=== PATIENT | female | born 1955 | race Caucasian/White ===

== ENCOUNTER → 2019-10-17 11:44 | Outpatient (BNVA) | payer MEDICARE, BC, SELFPAY | PROVIDERS: Family Provider Nurse Practitioner Family; PCP Nurse Practitioner Family; Visit Provider Internal Medicine Rheumatology | DX: Z79.899 Other long term (current) drug therapy (principal); M06.00 Rheumatoid arthritis without rheumatoid factor, unspecified site | CPT/HCPCS: 36415; 80076; 82565; 85025; 86140 ==

== ENCOUNTER → 2019-11-11 11:55 | Outpatient (BNVA) | payer MEDICARE, BC, SELFPAY | PROVIDERS: Family Provider Nurse Practitioner Family; PCP Nurse Practitioner Family; Visit Provider Internal Medicine Rheumatology | DX: M05.9 Rheumatoid arthritis with rheumatoid factor, unspecified (principal); M19.90 Unspecified osteoarthritis, unspecified site; Z79.899 Other long term (current) drug therapy; L60.8 Other nail disorders; M85.80 Other specified disorders of bone density and structure, unspecified site; M81.0 Age-related osteoporosis without current pathological fracture; M06.9 Rheumatoid arthritis, unspecified | CPT/HCPCS: 36415; 71046; 73130; 73630; 82306; 85025; 99214 ==

== ENCOUNTER 2019-11-11 13:32 | Outpatient (CLI) | payer MEDICARE, BC, SELFPAY ==
--- NOTE | 2019-11-11 13:42 | XRR_ITS ---
PROCEDURE INFORMATION: Exam: XR Right Foot Complete Exam date and time: 11/11/2019 1:43 PM Age: 63 years old Clinical indication: Condition or disease; Other: Rheumatoid arthritis TECHNIQUE: Imaging protocol: XR Right foot. Views: 3 or more views. COMPARISON: No relevant prior studies available. FINDINGS: Bones/joints: In the negative for acute bony abnormality. Negative for bony erosions. Soft tissues: Normal. XR/XR foot RT min 3V* [id number] IMPRESSION: No acute findings.
--- NOTE | 2019-11-11 13:42 | XRR_ITS ---
PROCEDURE INFORMATION: Exam: XR Left Hand Exam date and time: 11/11/2019 1:42 PM Age: 63 years old Clinical indication: Condition or disease; Other: Rheumatoid arthritis; Additional info: Rheumatoid arthritis f/u TECHNIQUE: Imaging protocol: XR Left hand. Views: 3 or more views. COMPARISON: No relevant prior studies available. FINDINGS: Bones/joints: Negative for acute bony abnormality. Negative for bony erosions Soft tissues: Normal. XR/XR hand LT min 3V* [id number] IMPRESSION: No acute findings.
--- NOTE | 2019-11-11 13:42 | XRR_ITS ---
PROCEDURE INFORMATION: Exam: XR Right Hand Exam date and time: 11/11/2019 1:43 PM Age: 63 years old Clinical indication: Condition or disease; Other: Rheumatoid arthritis; Additional info: Rheumatoid arthritis f/u TECHNIQUE: Imaging protocol: XR Right hand. Views: 3 or more views. COMPARISON: No relevant prior studies available. FINDINGS: Bones/joints: Negative for acute bony abnormality. Negative for acute bony erosions. Soft tissues: Normal. XR/XR hand RT min 3V* [id number] IMPRESSION: No acute findings. Negative for bony erosions
--- NOTE | 2019-11-11 13:42 | XRR_ITS ---
PROCEDURE INFORMATION: Exam: XR Left Foot Complete Exam date and time: 11/11/2019 1:43 PM Age: 63 years old Clinical indication: Condition or disease; Other: Rheumatoid arthritis; Additional info: Rheumatoid arthritis f/u TECHNIQUE: Imaging protocol: XR Left foot. Views: 3 or more views. COMPARISON: No relevant prior studies available. FINDINGS: Bones/joints: Negative for acute bony abnormality. A bone spurs present on the inferior calcaneus Soft tissues: Normal. XR/XR foot LT min 3V* [id number] IMPRESSION: No acute findings.
--- NOTE | 2019-11-11 13:42 | XRR_ITS ---
PROCEDURE INFORMATION: Exam: XR Chest, 2 Views Exam date and time: 11/11/2019 1:42 PM Age: 63 years old Clinical indication: Condition or disease; Other: Rheumatoid arthritis; Prior surgery; Surgery type: Port; Additional info: Rheumatoid arthritis check/follow up TECHNIQUE: Imaging protocol: XR of the chest Views: 2 views. COMPARISON: No relevant prior studies available. FINDINGS: Lungs: Unremarkable. No consolidation. Pleural space: Unremarkable. No pleural effusion. No pneumothorax. Heart/Mediastinum: Unremarkable. No cardiomegaly. Bones/joints: Unremarkable. A central line is in place on the left side extending into the SVC XR/XR chest 2V* 32179 IMPRESSION: No acute findings. Left central line extends to the SVC
== END 2019-11-11 13:33 | disposition home or self-care (01) ==
LOC: RAD 13:36
PROVIDERS: Family Provider Nurse Practitioner Family; PCP Nurse Practitioner Family; Visit Provider Internal Medicine Rheumatology
DX: M06.9 Rheumatoid arthritis, unspecified (principal); M19.90 Unspecified osteoarthritis, unspecified site; Z79.899 Other long term (current) drug therapy; L60.8 Other nail disorders; M85.80 Other specified disorders of bone density and structure, unspecified site; M81.0 Age-related osteoporosis without current pathological fracture
CPT/HCPCS: 71046; 73130; 73630; 82306; 85025

== ENCOUNTER → 2020-03-17 12:50 | Outpatient (BNVA) | payer MEDICARE, BC, SELFPAY | PROVIDERS: Family Provider Nurse Practitioner Family; PCP Nurse Practitioner Family; Visit Provider Internal Medicine Rheumatology | DX: L40.50 Arthropathic psoriasis, unspecified (principal); Z79.899 Other long term (current) drug therapy; M19.90 Unspecified osteoarthritis, unspecified site; M81.0 Age-related osteoporosis without current pathological fracture; M54.5 Low back pain | CPT/HCPCS: 36415; 80076; 82565; 85025; 85651; 86140; 99214 ==

== ENCOUNTER → 2020-06-16 10:29 | Outpatient (BNVA) | payer MEDICARE, BC, SELFPAY | PROVIDERS: Family Provider Nurse Practitioner Family; PCP Nurse Practitioner Family; Visit Provider Internal Medicine Rheumatology | DX: Z79.899 Other long term (current) drug therapy (principal); L40.50 Arthropathic psoriasis, unspecified | CPT/HCPCS: G0463 ==

== ENCOUNTER → 2020-07-15 09:47 | Outpatient (BNVA) | payer MEDICARE, BC, SELFPAY | PROVIDERS: Family Provider Nurse Practitioner Family; PCP Nurse Practitioner Family; Visit Provider Internal Medicine Rheumatology | DX: L40.50 Arthropathic psoriasis, unspecified (principal); L60.8 Other nail disorders; Z79.899 Other long term (current) drug therapy; I27.21 Secondary pulmonary arterial hypertension; M85.80 Other specified disorders of bone density and structure, unspecified site | CPT/HCPCS: 36415; 80076; 82565; 85025; 85651; 86140; 99214 ==

== ENCOUNTER → 2020-11-08 13:56 | Outpatient (BNVA) | payer MEDICARE, BC, SELFPAY | PROVIDERS: Family Provider Nurse Practitioner Family; PCP Nurse Practitioner Family; Visit Provider Internal Medicine Rheumatology | DX: M19.90 Unspecified osteoarthritis, unspecified site (principal); L40.50 Arthropathic psoriasis, unspecified; Z79.899 Other long term (current) drug therapy; L60.8 Other nail disorders; R76.8 Other specified abnormal immunological findings in serum; M85.80 Other specified disorders of bone density and structure, unspecified site | CPT/HCPCS: 99214 ==

== ENCOUNTER 2020-11-08 15:32 | Outpatient (CLI) | payer MEDICARE, BC, SELFPAY ==
[2020-11-08 16:04] LABS: Basophils % 0.3 %; Eosinophils # 0.2 10^3/uL (0.0-0.8); Eosinophils % 1.9 %; Hematocrit 39.4 % (37.0-47.0); Hemoglobin 12.4 g/dL (11.5-15.3); Lymphocytes # 2.4 10^3/uL (0.8-4.8); Mean Corpuscular HGB Conc 31.5 g/dL (30.0-36.0); Mean Corpuscular Volume 95.2 fL (81-99); Monocytes # 0.7 10^3/uL (0.2-0.9); Neutrophils # 8.92 10^3/uL (1.8-7.7); Nucleated Red Blood Cells % 0 %; Platelet Count 247 10^3/cmm (130-400); Red Blood Count 4.14 10^6/uL (4.1-5.3); Red Cell Distribution Width 13.2 % (12.1-15.1); White Blood Count 12.4 10^3/uL (4.0-10.0)
[2020-11-08 16:15] LABS: Alanine Aminotransferase 15 U/L (0-33); Albumin Level 3.7 g/dL (3.5-5.2); Alkaline Phosphatase 107 IU/L (35-105); Aspartate Amino Transferase 24 U/L (0-32); C Reactive Protein 21.7 mg/L (0.0-4.9); Globulin 4.2 g/dL (1.3-4.6); Glomerular Filtration Rate 72.7 mL/min (90-130); Total Bilirubin 0.4 mg/dL (0.15-1.2); Total Protein 7.9 g/dL (6.6-8.7)
== END 2020-11-08 15:33 | disposition home or self-care (01) ==
PROVIDERS: PCP Nurse Practitioner Family; Visit Provider Internal Medicine Rheumatology
DX: L40.50 Arthropathic psoriasis, unspecified (principal); Z79.899 Other long term (current) drug therapy
CPT/HCPCS: 36415; 80076; 82565; 85025; 86140

== ENCOUNTER → 2021-02-16 14:37 | Outpatient (BNVA) | payer MEDICARE, BC, SELFPAY | PROVIDERS: PCP Nurse Practitioner Family; Visit Provider Internal Medicine Rheumatology | DX: M19.90 Unspecified osteoarthritis, unspecified site (principal); L40.50 Arthropathic psoriasis, unspecified; L60.8 Other nail disorders; R21 Rash and other nonspecific skin eruption; R76.8 Other specified abnormal immunological findings in serum; M85.80 Other specified disorders of bone density and structure, unspecified site; I27.21 Secondary pulmonary arterial hypertension; G47.33 Obstructive sleep apnea (adult) (pediatric); Z71.89 Other specified counseling | CPT/HCPCS: 99214 ==

== ENCOUNTER → 2021-06-27 12:59 | Outpatient (BNVA) | payer MEDICARE, BC, SELFPAY | PROVIDERS: PCP Nurse Practitioner Family; Visit Provider Internal Medicine Rheumatology | DX: L40.50 Arthropathic psoriasis, unspecified (principal); Z79.899 Other long term (current) drug therapy; R76.8 Other specified abnormal immunological findings in serum; I27.21 Secondary pulmonary arterial hypertension; G47.33 Obstructive sleep apnea (adult) (pediatric); M85.80 Other specified disorders of bone density and structure, unspecified site; Z71.89 Other specified counseling | CPT/HCPCS: 99214 ==

== ENCOUNTER 2021-06-27 14:30 | Outpatient (CLI) | payer MEDICARE, BC, SELFPAY ==
[2021-06-27 15:18] LABS: Basophils % 0.3 %; Eosinophils # 0.1 10^3/uL (0.0-0.8); Hematocrit 42.2 % (37.0-47.0); Hemoglobin 13.3 g/dL (11.5-15.3); Lymphocytes # 2.4 10^3/uL (0.8-4.8); Lymphocytes % 19.5 %; Mean Corpuscular HGB Conc 31.5 g/dL (30.0-36.0); Mean Corpuscular Volume 92.1 fl (81-99); Mean Platelet Volume 10.7 fL (7.4-10.4); Monocytes # 0.7 10^3/uL (0.2-0.9); Monocytes % 5.7 %; Neutrophils # 8.95 10^3/uL (1.8-7.7); Neutrophils % 72.8 %; Nucleated Red Blood Cells % 0 %; Platelet Count 265 10^3/cmm (130-400); Red Blood Count 4.58 10^6/uL (4.1-5.3); Red Cell Distribution Width 12.7 % (12.1-15.1); White Blood Count 12.3 10^3/uL (4.0-10.0)
[2021-06-27 15:48] LABS: Alanine Aminotransferase 12 U/L (0-33); Albumin Level 3.6 g/dL (3.5-5.2); Alkaline Phosphatase 83 IU/L (35-105); Aspartate Amino Transferase 22 U/L (0-32); C Reactive Protein 16.7 mg/L (0.0-4.9); Total Bilirubin 0.3 mg/dL (0.15-1.2); Total Protein 7.6 g/dL (6.6-8.7)
== END 2021-06-27 14:31 | disposition home or self-care (01) ==
PROVIDERS: PCP Nurse Practitioner Family; Visit Provider Internal Medicine Rheumatology
DX: M05.9 Rheumatoid arthritis with rheumatoid factor, unspecified (principal); Z79.899 Other long term (current) drug therapy
CPT/HCPCS: 36415; 80076; 82565; 85025; 86140

== ENCOUNTER → 2021-10-17 13:43 | Outpatient (BNVA) | payer MEDICARE, BC, SELFPAY | PROVIDERS: PCP Nurse Practitioner Family; Visit Provider Internal Medicine Rheumatology | DX: R76.8 Other specified abnormal immunological findings in serum (principal); L40.50 Arthropathic psoriasis, unspecified; Z79.899 Other long term (current) drug therapy; M85.80 Other specified disorders of bone density and structure, unspecified site; Z71.89 Other specified counseling | CPT/HCPCS: 85025; 99214 ==

== ENCOUNTER → 2022-03-01 10:02 | Outpatient (BNVA) | payer MEDICARE, BC, SELFPAY | PROVIDERS: PCP Nurse Practitioner Family; Visit Provider Internal Medicine Rheumatology | DX: L40.50 Arthropathic psoriasis, unspecified (principal); R76.8 Other specified abnormal immunological findings in serum; Z79.899 Other long term (current) drug therapy; Z71.89 Other specified counseling; I27.20 Pulmonary hypertension, unspecified; G47.33 Obstructive sleep apnea (adult) (pediatric); M85.80 Other specified disorders of bone density and structure, unspecified site | CPT/HCPCS: 99214 ==

== ENCOUNTER 2022-05-03 11:19 | Outpatient (CLI) | payer MEDICARE, BC, SELFPAY ==
[2022-05-03 12:07] LABS: Basophils # 0.1 10^3/uL (0.0-0.1); Basophils % 0.5 %; Eosinophils # 0.4 10^3/uL (0.0-0.8); Eosinophils % 3.4 %; Hematocrit 42.5 % (37.0-47.0); Hemoglobin 13.3 g/dL (11.5-15.3); Lymphocytes # 2.4 10^3/uL (0.8-4.8); Lymphocytes % 21.9 %; Mean Corpuscular HGB Conc 31.3 g/dL (30.0-36.0); Mean Corpuscular Hemoglobin 28.5 pg (28.0-34.0); Mean Platelet Volume 10.1 fL (7.4-10.4); Monocytes # 0.7 10^3/uL (0.2-0.9); Monocytes % 6.9 %; Neutrophils # 7.22 10^3/uL (1.8-7.7); Neutrophils % 66.8 %; Nucleated Red Blood Cells % 0 %; Platelet Count 294 10^3/cmm (130-400); Red Blood Count 4.67 10^6/uL (4.1-5.3); Red Cell Distribution Width 12.4 % (12.1-15.1); White Blood Count 10.8 10^3/uL (4.0-10.0)
[2022-05-03 12:24] LABS: Alanine Aminotransferase 16 U/L (0-33); Albumin Level 3.7 g/dL (3.5-5.2); Alkaline Phosphatase 115 U/L (35-105); Aspartate Amino Transferase 18 U/L (0-32); C Reactive Protein 22.9 mg/L (0.0-4.9); Globulin 4.3 g/dL (1.3-4.6); Glomerular Filtration Rate 72.2 mL/min (90-130); Total Bilirubin 0.2 mg/dL (0.15-1.2)
== END 2022-05-03 11:20 | disposition home or self-care (01) ==
LOC: LAB 11:24
PROVIDERS: PCP Nurse Practitioner Family; Visit Provider Internal Medicine Rheumatology
DX: M05.9 Rheumatoid arthritis with rheumatoid factor, unspecified (principal); Z79.899 Other long term (current) drug therapy
CPT/HCPCS: 36415; 80076; 82565; 85025; 86140

== ENCOUNTER → 2022-07-05 10:15 | Outpatient (BNVA) | payer MEDICARE, BC, SELFPAY | PROVIDERS: PCP Nurse Practitioner Family; Visit Provider Internal Medicine Rheumatology | DX: L40.50 Arthropathic psoriasis, unspecified (principal); Z79.899 Other long term (current) drug therapy; R76.8 Other specified abnormal immunological findings in serum; Z71.89 Other specified counseling | CPT/HCPCS: 36415; 80076; 82565; 85025; 86140; 99214 ==

== ENCOUNTER → 2022-10-02 10:00 | Outpatient (BNVA) | payer MEDICARE, BC, SELFPAY | PROVIDERS: PCP Nurse Practitioner Family; Visit Provider Internal Medicine Rheumatology | DX: L40.50 Arthropathic psoriasis, unspecified (principal); Z79.899 Other long term (current) drug therapy; R76.8 Other specified abnormal immunological findings in serum; Z71.89 Other specified counseling | CPT/HCPCS: 36415; 80076; 82565; 85025; 86140; 99214 ==

== ENCOUNTER → 2023-01-08 10:13 | Outpatient (BNVA) | payer MEDICARE, SELFPAY | PROVIDERS: PCP Nurse Practitioner Family; Visit Provider Internal Medicine Rheumatology | DX: R76.8 Other specified abnormal immunological findings in serum (principal); L40.50 Arthropathic psoriasis, unspecified; Z71.89 Other specified counseling; Z79.899 Other long term (current) drug therapy | CPT/HCPCS: 36415; 80076; 82565; 85025; 86140; 99214 ==

== ENCOUNTER → 2023-04-09 09:17 | Outpatient (BNVA) | payer MEDICARE, SELFPAY | PROVIDERS: PCP Nurse Practitioner Family; Visit Provider Internal Medicine Rheumatology | DX: Z79.899 Other long term (current) drug therapy (principal); L40.50 Arthropathic psoriasis, unspecified; R76.8 Other specified abnormal immunological findings in serum; Z71.89 Other specified counseling | CPT/HCPCS: 36415; 80076; 82565; 85025; 86140; 99214 ==

== ENCOUNTER → 2023-07-30 08:59 | Outpatient (BNVA) | payer MEDICARE, SELFPAY | PROVIDERS: PCP Nurse Practitioner Family; Visit Provider Internal Medicine Rheumatology | DX: L40.50 Arthropathic psoriasis, unspecified (principal); Z79.899 Other long term (current) drug therapy; R76.8 Other specified abnormal immunological findings in serum; Z71.89 Other specified counseling | CPT/HCPCS: 99214 ==

== ENCOUNTER → 2023-11-19 14:51 | Outpatient (BNVA) | payer MEDICARE, SELFPAY | PROVIDERS: PCP Nurse Practitioner Family; Visit Provider Internal Medicine Rheumatology | DX: Z79.899 Other long term (current) drug therapy (principal); L40.50 Arthropathic psoriasis, unspecified | CPT/HCPCS: 36415; 80076; 82565; 85025; 86140 ==

== ENCOUNTER 2024-02-08 08:00 | Oncology outpatient (recurring) (ONCR) | payer MEDICARE, SELFPAY ==
--- OUTSIDE RECORDS SUMMARY | 2024-01-02 15:49 | XMS_ITS | Patient Health Record ---
Author Name Unknown Organization [facility] Address [address] [place] [address] Care Team Providers Care [employer] Name Role Phone Barr Polly LANGE Primary Care Provider Frank Posada Unavailable [phone] Allergies Allergen (clinical drug ingredient) Drug/Non Drug Allergy documented on EMR Reaction Allergy Type Onset Date Status penicillin G Penicillin G Potassium Unknown Drug Allergy Active Sulfur Unknown Drug Allergy Active Substance with penicillin structure and antibacterial mechanism of action (substance) penicillins Unknown Drug Allergy Active Substance with sulfonamide structure and antibacterial mechanism of action (substance) sulfa drugs Unknown Drug Allergy Active Reason For Referral No Information Medications Medication SIG (Take, Route, Frequency, Duration) Notes Start Date End Date Status Diclofenac Sodium 3 % 1 application Externally Twice a day Not-Taking Dilaudid IN PAIN PUMP Not-Aneesh ing Gemfibrozil 600 MG 1 tablet 30 minutes before morning and evening meals Orally Twice a day Active Furosemide 40 MG 1 tablet Orally Once a day Not-Taking Collagen Ultra - as directed Orally Active Leflunomide 20 MG 1 tablet Orally Once a day Not-Taking Eszopiclone 2 MG 1 tablet immediately before bedtime Orally Once a day Not-Taking Linzess 145 MCG 1 capsule at least 30 minutes before the first meal of the day on an empty stomach Orally Once a day Not-Taking Gabapentin 600 MG 1 tablet Orally TID Unverified Not-Taking Morphine Sulfate-NaCl (PF) internal pain pump Not-Taking Nebivolol HCl 20 MG 1 tablet Orally Once a day Not-Taking Phentermine HCl 37.5 MG TAKE ONE TABLET BY MOUTH ONCE DAILY Oral for 30 Not-Taking OLANZapine 10 MG 1 tablet Orally Once a day Not-Taking predniSONE 5 MG 1 tablet Orally PRN Once a day Unverified Not-Taking Rinvoq Active ProAir HFA 108 (90 Base) MCG/ACT 2 puff(s) as needed Inhalation Unverified Not-Taking Bystolic 10 MG 1 tablet Orally bid Unverified Not-Taking traZODone HCl 150 MG 2 tablet at bedtime Orally Once a day for 30 day(s) Not-Taking Cosentyx 150 MG/ML 1 ml Subcutaneous Q 4 weeks Not-Taking Vitamin D3 25 MCG (1000 UT) 2 capsule Orally Once a day Not-Taking Gabapentin 600 MG Oral for 90 Days Active traZODone HCl 150 MG Oral for 90 Days Active Eszopiclone 2 MG Oral for 90 Days Active OLANZapine 10 MG Oral for 90 Days Active Immunizations Vaccine Route Administration Date Status Comme nts COVID (MOD) 12+yr 2022- Unknown 03/30/2023 Administer ed COVID-19 Vaccine (Moderna) Dose #1 Unknown 08/13/2020 A dministered COVID-19 Vaccine (Moderna) Dose #2 Unknown 09/10/2020 A dministered COVID-19 Vaccine (Moderna) Dose #3 Unknown 04/01/2021 A dministered Flu vaccine no Preserv 3 and > Unknown 05/01/2019 Admin istered Flucelvax Quadrivalent Pres Free Unknown 03/23/2016 Adm inistered Fluzone High-Dose Quadrivale nt [place] Unknown 03/30/2023 Administered Influenza (split), 2 yrs and above Unknown 04/14/2021 A dministered Influenza (whole), CPT 94440 Inactive Unknown 04/21/2014 Administered Influenza (whole), CPT 72281 Inactive Unknown 04/17/2017 Administered Influenza (whole), CPT 19346 Inactive Unknown 04/18/2018 Administered Influenza, seasonal, injecta ble, preservative free, 3 yrs and above Unknown 04/29/2019 Administered Influenza, seasonal, injecta ble, preservative free, 3 yrs and above Unknown 04/20/2020 Administered Pneumococcal conjugate PCV 13 Unknown 05/27/2015 Admini stered Pneumococcal polysaccharide PPV23 Unknown 06/18/2009 Ad ministered Shingrix Unknown 03/30/2023 Administered Social History Tobacco Use: Social History Observation Description Date Details (start date - stop date) Never Smoker NA - NA Tobacco Control (Standard) Question Answer Notes Tobacco use: Nonsmoker Problems Problem Type SNOMED Code ICD Code Onset Dates Problem Status W/U Status Risk Notes Problem 28649942 Obstructive slee p apnea (adult) (pediatric) (G47.33) Active confirmed Problem 35218376 Other sleep disorders (G47.8) Active confirmed Problem 53779609 Chronic rhinitis (J31.0) Active confirmed Problem Dependence on supplemental oxygen (281470262142) Dependence on supplemental oxygen (Z99.81) Active confirmed Problem 374871059 Dependence on other enabling machines and devices (Z99.89) Active confirmed Problem Pulmonary hypertension due to left heart disease (704160992) 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) Active confirmed Problem Pulmonary hypertension due to lung disease and/or hypoxia (559868965) Pulmonary hypertension due to lung diseases and hypoxia (I27.23) Active confirmed Problem 100011779 Other secondary pulmonary hypertension (I27.29) Active confirmed Problem Continuous positive airway pressure ventilation treatment (15123120) CPAP (continuous positive airway pressure) dependence (Z99.89) Active confirmed Problem Body mass index 40+ - severely obese (752484669) BMI 45.0-49.9, adult (Z68.42) Active confirmed Problem Body mass index 40+ - morbidly obese (839118377) BMI 40.0-44.9, adult (Z68.41) Active confirmed Problem 25955991 Pulmonary hypertension (I27.20) Active confirmed Problem Chronic hypoxemic respiratory failure (808462755) Chronic hypoxemic respiratory failure (J96.11) Active confirmed Problem Chronic hypercapnic respiratory failure (207804369) Chronic hypercapnic respiratory failure (J96.12) Active confirmed Problem Extreme obesity with alveolar hypoventilation (887982828) Obesity hypoventilation syndrome (E66.2) Active confirmed Problem Shortness of breath (633199550) Shortness of breath (R06.02) Active confirmed [facility]-103 6773- Vital Signs Heart Rate 96 /min 11/01/2023 Temperature 98 degrees Fahrenheit 11/01/2023 Respiratory Rate 18 /min 11/01/2023 Height-cm 164 cm 11/01/2023 Oximetry 93 % 11/01/2023 Blood pressure diastolic 77 mm Hg 11/01/2023 Weight-kg 122.3 kg 11/01/2023 Height 64.57 in 11/01/2023 Blood pressure systolic 127 mm Hg 11/01/2023 Weight 269.62 lbs 11/01/2023 BMI 45.46 kg/m2 11/01/2023 Encounters Encounter Location Date Provider Diagnosis [facility] [address] [place] [address] 04/23/2023 Frank Lili Pulmonary hypertensi on due to lung diseases and hypoxia I27.23 ; Chronic hypoxemic respiratory failure J96.11 ; Chronic hypercapnic respiratory failure J96.12 ; Obstructive sleep apnea (adult) (pediatric) G47.33 ; Obesity hypoventilation syndrome E66.2 ; Dependence on supplemental oxygen Z99.81 ; Dependence on other enabling machines and devices Z99.89 and BMI 45.0-49.9, adult Z68.42 [facility] [address] [place] [address] 11/01/2023 Frank Pearson Chronic hypoxemic respiratory failure J96.11 ; Pulmonary hypertension due to left heart disease I27.22 ; Chronic hypercapnic respiratory failure J96.12 ; Obstructive sleep apnea (adult) (pediatric) G47.33 ; Chronic rhinitis J31.0 ; Obesity hypoventilation syndrome E66.2 ; Dependence on supplemental oxygen Z99.81 ; Dependence on other enabling machines and devices Z99.89 and BMI 45.0-49.9, adult Z68.42 [facility] [address] [place] [address] 04/23/2023 Frank Pearson Assessments Encounter Date Diagnosis (ICD Code) Assessment Notes Treatment Notes Treatment Clinical Notes 04/23/2023 Pulmonary hypertension due to lung diseases and hypoxia (ICD-10 - I27.23) - Secondary to left heart disease as well as hypoxemia and sleep apnea. -Currently on lasix -Encourage exercise 04/23/2023 Chronic hypoxemic respiratory failure (ICD-10 - J96.11) - Patient's spo2 dropped to 84% when ambulating on room air here in clinic. She required 2 lpm to keep her spo2 at 90%. Continue oxygen use to maintain a saturation above 89% given pulmonary hypertension 11/01/2023 Pulmonary hypertension due to left heart disease (ICD-10 - I27.22) - Secondary to left heart disease as well as hypoxemia and sleep apnea. -Patient currently not on Lasix. She has not seen Dr. Andrade in years. -Encourage exercise. 11/01/2023 Chronic hypoxemic respiratory failure (ICD-10 - J96.11) Continue oxygen use to maintain a saturation above 89% given pulmonary hypertension. She is compliant with her oxygen and is benefiting from using it. 11/01/2023 Chronic hypercapnic respiratory failure (ICD-10 - J96.12) - continue use of trilogy when asleep at night. She is compliant with her NIV and is benefiting from it. 04/23/2023 Chronic hypercapnic respiratory failure (ICD-10 - J96.12) - continue use of trilogy when asleep at night. 04/23/2023 Obstructive sleep apnea (adult) (pediatric) (ICD-10 - G47.33) - obesity hypoventilation syndrome - encourage exercise 11/01/2023 Obstructive sleep apnea (adult) (pediatric) (ICD-10 - G47.33) - obesity hypoventilation syndrome - encourage exercise 11/01/2023 Chronic rhinitis (ICD-10 - J31.0) I told her she may use Flonase nasal spray 04/23/2023 Obesity hypoventilation syndrome (ICD-10 - E66.2) 04/23/2023 Dependence on supplemental oxygen (ICD-10 - Z99.81) 11/01/2023 Obesity hypoventilation syndrome (ICD-10 - E66.2) 11/01/2023 Dependence on supplemental oxygen (ICD-10 - Z99.81) 04/23/2023 Dependence on other enabling machines and devices (ICD-10 - Z99.89) 04/23/2023 BMI 45.0-49.9, adult (ICD-10 - Z68.42) 11/01/2023 Dependence on other enabling machines and devices (ICD-10 - Z99.89) 11/01/2023 BMI 45.0-49.9, adult (ICD-10 - Z68.42) 11/01/2023 Other I, Yennifer Prajapati, am scribing for, and in the presence of Dr. Frank Pearson. I, Dr. Frank Pearson, personally performed the services described in this documentation, as scribed by Yennifer Prajapati in my presence, and it is both accurate and complete. Plan Of Treatment Future Test Test Name Order Date Blood Gas Arterial--[id number] 12/26/2020 Next Appt Details Provider Name:Frank Pearson, 11/03/2024 01:40:00 PM, [address] [place] [address] [address], [place], [address], Insurance Providers Payer Name Payer Address Payer Phone Subscriber Number Group Number Insured Name Patient Relationship to Insured Coverage Start Date Coverage End Date [place] Medicare [address] [place] [phone] [id number] SHAMIKAMAKAYLA LAGUERRE Self - patient is the insured [facility] Medicare Supplement [address] [place] [address] [id number] SHAMIKAMAKAYLA Self - patient is the insured Medical (General) History Medical History History ICD Code Problem:Acute on chronic fernanda stolic heart failure (disorder) , Status :: Active Problem:Body mass index 40+ - severely o bese (finding) , Status :: Active Problem:Chronic back pain (disorder) , S tatus :: Active Problem:Chronic diastolic heart failure (disorder) , Status :: Active Problem:Chronic hypoxemic respiratory fa ilure (disorder) , Status :: Active Problem:Depressive disorder (disorder) , Status :: Active Problem:Disorder of the venkat pheral nervous system (disorder) , Status :: Active Problem:Edema (finding) , Status :: Acti ve Problem:Edema of lower extremity (findin g) , Status :: Active Problem:Hip pain (finding) , Status :: A ctive Problem:Hypertensive disorde r, systemic arterial (disorder) , Status :: Active Problem:Hypertriglyceridemia (disorder) , Status :: Active Problem:Insomnia (disorder) , Status :: Active Problem:Kidney stone (disorder) , Status :: Active Problem:Obesity (disorder) , Status :: A ctive Problem:Obstructive sleep apnea syndrome (disorder) , Status :: Active Problem:Persistent insomnia (disorder) , Status :: Active Problem:Pulmonary function studies abnor mal (finding) , Status :: Active Problem:Pulmonary venous hyp ertension due to disorder of left heart (disorder) , Status :: Active Problem:Rheumatoid arthritis (disorder) , Status :: Active Problem:Rheumatoid arthritis - multiple joint (disorder) , Status :: Active Problem:Obesity (disorder) , Status :: A ctive Surgical History Surgery Date(Month/Year) appendectomy port a cath placement total hytserectomy oophorectomy cholecystectomy pain pump placement back surgery Hospitalization History Reason Date(Month/Year) Kidney Stone- ER 10/2023 see surgical Hx
[2024-01-24] VITALS (8 sets, daily range): BP systolic 128–165; BP diastolic 72–84; PULSE 68–87; RESP 16–18; TEMP 35.9–36.8; O2SAT 93–98
--- OUTSIDE RECORDS SUMMARY | 2024-01-24 10:52 | XMS_ITS ---
Author Name Unknown Organization [facility] Address [address] [place] [address] Care Team Providers Care Die Sinking Machine Operator Name Role Phone Polly Barr APRN Primary Care Provider UnaFrank Michaels Unavailable [phone] Allergies Allergen (clinical drug ingredient) Drug/Non Drug Allergy documented on EMR Reaction Allergy Type Onset Date Status penicillin G Penicillin G Potassium Unknown Drug Allergy Active Sulfur Unknown Drug Allergy Active Substance with penicillin structure and antibacterial mechanism of action (substance) penicillins Unknown Drug Allergy Active Substance with sulfonamide structure and antibacterial mechanism of action (substance) sulfa drugs Unknown Drug Allergy Active REASON FOR VISIT shortness of breath Medications Medication SIG (Take, Route, Frequency, Duration) Notes Start Date End Date Status predniSONE 5 MG 1 tablet Orally Once a day for 30 day(s) 11/01/2023 12/01/2023 Active traZODone HCl 150 MG 2 tablet at bedtime Orally Once a day for 30 day(s) Not-Taking Vitamin D3 25 MCG (1000 UT) 2 capsule Orally Once a day Not-Taking Eszopiclone 2 MG Oral for 90 Days Active OLANZapine 10 MG Oral for 90 Days Active Morphine Sulfate-NaCl (PF) internal pain pump Not-Taking Phentermine HCl 37.5 MG TAKE ONE TABLET BY MOUTH ONCE DAILY Oral for 30 Not-Taking predniSONE 5 MG 1 tablet Orally PRN Once a day Unverified Not-Taking ProAir HFA 108 (90 Base) MCG/ACT 2 puff(s) as needed Inhalation Unverified Not-Taking traZODone HCl 150 MG Oral for 90 Days Active Dilaudid IN PAIN PUMP Not-Aneesh ing Furosemide 40 MG 1 tablet Orally Once a day Not-Taking Leflunomide 20 MG 1 tablet Orally Once a day Not-Taking Linzess 145 MCG 1 capsule at least 30 minutes before the first meal of the day on an empty stomach Orally Once a day Not-Taking Diclofenac Sodium 3 % 1 application Externally Twice a day Not-Taking Nebivolol HCl 20 MG 1 tablet Orally Once a day Not-Taking OLANZapine 10 MG 1 tablet Orally Once a day Not-Taking Rinvoq Active Bystolic 10 MG 1 tablet Orally bid Unverified Not-Taking Cosentyx 150 MG/ML 1 ml Subcutaneous Q 4 weeks Not-Taking Gemfibrozil 600 MG 1 tablet 30 minutes before morning and evening meals Orally Twice a day Active Collagen Ultra - as directed Orally Active Eszopiclone 2 MG 1 tablet immediately before bedtime Orally Once a day Not-Taking Gabapentin 600 MG 1 tablet Orally TID Unverified Not-Taking Gabapentin 600 MG Oral for 90 Days Active Social History Tobacco Use: Social History Observation Description Date Details (start date - stop date) Never Smoker NA - NA Tobacco Control (Standard) Question Answer Notes Tobacco use: Nonsmoker Problems Problem Type SNOMED Code ICD Code Onset Dates Problem Status W/U Status Risk Notes Problem 93372734 Pulmonary hypertension (I27.20) Active confirmed Problem 88536679 Chronic rhinitis (J31.0) Active confirmed Vital Signs Temperature 98 degrees Fahrenheit 11/01/2023 Blood pressure systolic 127 mm Hg 11/01/19 24 Blood pressure diastolic 77 mm Hg 024 Heart Rate 96 /min 11/01/2023 Respiratory Rate 18 /min 11/01/2023 Height 64.57 in 11/01/2023 Weight 269.62 lbs 11/01/2023 BMI 45.46 kg/m2 11/01/2023 Oximetry 93 % 11/01/2023 Height-cm 164 cm 11/01/2023 Weight-kg 122.3 kg 11/01/2023 Encounters Encounter Location Date Provider Diagnosis [facility] [address] [place] [address] [place] [address] 11/01/2023 Frank Pearson Chronic hypoxemic respiratory failure J96.11 ; 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 She is compliant with her oxygen and is benefiting from using it. 11/01/2023 Pulmonary hypertension due to left heart disease (ICD-10 - I27.22) - Secondary to left heart disease as well as hypoxemia and sleep apnea. -Patient currently not on Lasix. She has not seen Dr. Andrade in years. -Encourage exercise. 11/01/2023 Chronic hypercapnic respiratory failure (ICD-10 - J96.12) - continue use of trilogy when asleep at night. She is compliant with her NIV and is benefiting from it. 11/01/2023 Obstructive sleep apnea (adult) (pediatric) (ICD-10 - G47.33) - obesity hypoventilation syndrome - encourage exercise 11/01/2023 Chronic rhinitis (ICD-10 - J31.0) I told her she may use Flonase nasal spray 11/01/2023 Obesity hypoventilation syndrome (ICD-10 - E66.2) 11/01/2023 Dependence on supplemental oxygen (ICD-10 - Z99.81) 11/01/2023 Dependence on other enabling machines and [...] both accurate and complete. Plan Of Treatment Treatment Notes Assessment Notes Chronic hypoxemic respiratory failure Co ntinue oxygen use to maintain a saturation above 89% given pulmonary hypertension. She is compliant with her oxygen and is benefiting from using it. Pulmonary hypertension due t o left heart disease - Secondary to left heart disease as well as hypoxemia and sleep apnea. -Patient currently not on Lasix. She has not seen Dr. Andrade in years. -Encourage exercise. Chronic hypercapnic respiratory failure - continue use of trilogy when asleep at night. She is compliant with her NIV and is benefiting from it. Obstructive sleep apnea (paige lt) (pediatric) - obesity hypoventilation syndrome - encourage exercise Chronic rhinitis I told her she may u se Flonase nasal spray Next Appt Details Follow Up: 1 Year, Reason: F /U Provider Name:Frank Pearson, 11/03/2024 01:40:00 PM, [address] [place] [address] [address], [place], [address], Progress Notes * MAKAYLA GALLARDO GDOB:1955 (67 yo F)Acc No.[id number]:11/01/2023 Progress Notes Patient:?MAKAYLA GALLARDO Karen Provider:?Frank Pearson MD :1955???Age:67 Y???Sex:Female D ate:11/01/2023 Address:[address] [place], [place] [id number] Pcp:Polly Barr APRN Check In:01:21 PM CSTCheck O ut:01:59 PM ENVIRONMENTAL AID Subjective: * Chief Complaints: * ???Shortness of breath * HPI: ???::?The patient is a 67-year-old female with shortness of breath here for?a follow-up visit. She had?an episode where she complained of increased breathlessness. She does have seasonal allergies it seems. She did take prednisone and it seems to have resolved her symptoms. She is compliant with oxygen use and using the trilogy device at night. She has not seen Dr. Andrade in years. ???Polysomnogram:?Polysomnogram results showed?12/24/17: AHI 8.5, requiring CPAP pressure of 15 cm water.?Pulmonary function test:?Pulmonary function testing showed?12/21/17: FEV1/FVC 73%, FEV1 66% (1.77 L), TLC 63%, RV 42%, DLCO 63%.? * ROS:?General - Multi System:?Constitutional?fatigue.?Respiratory?shortness of breath.? * Medical History:? * Surgical History:?appendecto my port a cath placement total hytserectomy oophorectomy cholecystectomy pain pump placement back surgery * Hospitalization/Major Diagno stic Procedure:?see surgical Hx Kidney Stone- ER 10/2023 * Family History:?Father: unkn own, heart attack, diabetes.?Mother: diabetes, heart disease.? * Social History:?Tobacco Use:?Tobacco Control (Standard)?Tobacco use:?Nonsmoker ???never smoker. * Medications:?TakingRinvoq Ga bapentin 600 MG Tablet Oral traZODone HCl 150 MG Tablet Oral Eszopiclone 2 MG Tablet Oral OLANZapine 10 MG Tablet Oral predniSONE 5 MG Tablet 1 tablet Orally Once a day , stop date 12/01/2023ollagen Ultra - Capsule as directed Orally Gemfibrozil 600 MG Tablet 1 tablet 30 minutes before morning and evening meals Orally Twice a day Taking Rinvoq Taking Gabapentin 600 MG Tablet Oral Taking traZODone HCl 150 MG Tablet Oral Taking Eszopiclone 2 MG Tablet Oral Taking OLANZapine 10 MG Tablet Oral Taking predniSONE 5 MG Tablet 1 tablet Orally Once a day , stop date 12/01/2023Taking Collagen Ultra - Capsule as directed Orally Taking Gemfibrozil 600 MG Tablet 1 tablet 30 minutes before morning and evening meals Orally Twice a day Not-TakingEszopiclone 2 MG Tablet 1 tablet immediately before bedtime Orally Once a day Gabapentin 600 MG Tablet 1 tablet Orally TID , Notes to Pharmacist: UnverifiedNebivolol HCl 20 MG Tablet 1 tablet Orally Once a day OLANZapine 10 MG Tablet 1 tablet Orally Once a day Bystolic 10 MG Tablet 1 tablet Orally bid , Notes to Pharmacist: UnverifiedCosentyx 150 MG/ML Solution Prefilled Syringe 1 ml Subcutaneous Q 4 weeks Diclofenac Sodium 3 % Gel 1 application Externally Twice a day Dilaudid , Notes to Pharmacist: IN PAIN PUMPFurosemide 40 MG Tablet 1 tablet Orally Once a day Leflunomide 20 MG Tablet 1 tablet Orally Once a day Linzess 145 MCG Capsule 1 capsule at least 30 minutes before the first meal of the day on an empty stomach Orally Once a day Morphine Sulfate-NaCl (PF) , Notes to Pharmacist: internal pain pumpPhentermine HCl 37.5 MG Tablet TAKE ONE TABLET BY MOUTH ONCE DAILY Oral predniSONE 5 MG Tablet 1 tablet Orally PRN Once a day , Notes to Pharmacist: UnverifiedProAir HFA 108 (90 Base) MCG/ACT Aerosol Solution 2 puff(s) as needed Inhalation , Notes to Pharmacist: UnverifiedtraZODone HCl 150 MG Tablet 2 tablet at bedtime Orally Once a day Vitamin D3 25 MCG (1000 UT) Capsule 2 capsule Orally Once a day Not-Taking Eszopiclone 2 MG Tablet 1 tablet immediately before bedtime Orally Once a day Not-Taking Gabapentin 600 MG Tablet 1 tablet Orally TID , Notes to Pharmacist: UnverifiedNot-Taking Nebivolol HCl 20 MG Tablet 1 tablet Orally Once a day Not-Taking OLANZapine 10 MG Tablet 1 tablet Orally Once a day Not-Taking Bystolic 10 MG Tablet 1 tablet Orally bid , Notes to Pharmacist: UnverifiedNot-Taking Cosentyx 150 MG/ML Solution Prefilled Syringe 1 ml Subcutaneous Q 4 weeks Not-Taking Diclofenac Sodium 3 % Gel 1 application Externally Twice a day Not-Taking Dilaudid , Notes to Pharmacist: IN PAIN PUMPNot-Taking Furosemide 40 MG Tablet 1 tablet Orally Once a day Not-Taking Leflunomide 20 MG Tablet 1 tablet Orally Once a day Not- Taking Linzess 145 MCG Capsule 1 capsule at least 30 minutes before the first meal of the day on an empty stomach Orally Once a day Not-Taking Morphine Sulfate-NaCl (PF) , Notes to Pharmacist: internal pain pumpNot-Taking Phentermine HCl 37.5 MG Tablet TAKE ONE TABLET BY MOUTH ONCE DAILY Oral Not-Taking predniSONE 5 MG Tablet 1 tablet Orally PRN Once a day , Notes to Pharmacist: UnverifiedNot-Taking ProAir HFA 108 (90 Base) MCG/ACT Aerosol Solution 2 puff(s) as needed Inhalation , Notes to Pharmacist: UnverifiedNot-Taking traZODone HCl 150 MG Tablet 2 tablet at bedtime Orally Once a day Not-Taking Vitamin D3 25 MCG (1000 UT) Capsule 2 capsule Orally Once a day * Allergies:?penicillins: Dragan rgysulfa drugs: AllergyPenicillin G PotassiumSulfurno[Allergies Verified] Objective: * Vitals:?Ht: 64.57 in, Wt:269 .62lbs, Wt-k.3 kg, BMI:45.46Index, Temp:98F, BP:127/77mm Hg, HR:96/min, RR:18/min, Oxygen sat %:93%, O2 Source: CONS POC, FiO2 (%): 3L, Ht-cm: 164 cm. * Examination: ???General Examination: ?GENERAL APPEARANCE:?alert and oriented, no acute distress.?EYES:?extraocular movement intact (EOMI).?EARS:?normal hearing.?SKIN:?warm, moist.?HEART:?normal rate, regular rhythm, no murmur, no edema.?LUNGS:?lungs clear to auscultation, nonlabored respirations, breath sounds equal .?NEUROLOGIC:?alert, oriented.?PSYCH:?cooperative, appropriate mood and affect.? Assessment: * Assessment: 1.?Pulmonary hypertension du e to left heart disease - I27.22 (Primary)?2.?Chronic hypoxemic respiratory failure - J96.11?3.?Chronic hypercapnic respiratory failure - J96.12 4.?Obstructive sleep apnea (adult) (pediatric) - G47.33?5.?Chronic rhinitis - J31.0?6.?Obesity hypoventilation syndrome - E66.2?7.?Dependence on supplemental oxygen - Z99.81?8.?Dependence on other enabling machines and devices - Z99.89?9.?BMI 45.0-49.9, adult - Z68.42? Plan: * Treatment: 2.?Chronic hypoxemic respira tory failure? Notes: Continue oxygen use to maintain a saturation above 89% given pulmonary hypertension. She is compliant with her oxygen and is benefiting from using it. ?? 3.?Chronic hypercapnic respi ratory failure? Notes: - continue use of trilogy when asleep at night. She is compliant with her NIV and is benefiting from it.?? 4.?Obstructive sleep apnea ( adult) (pediatric)? Notes:- obesity hypoventilation syndrome - encourage exercise?? 5.?Chronic rhinitis? Notes: I told her she may use Flonase nasal spray?? 6.?Others? Clinical Notes: I, Yennifer Prajapati, am scribing for, and in the presence of Dr. Frank Pearson. I, Dr. Frank Pearson, personally performed the services described in this documentation, as scribed by Yennifer Prajapati in my presence, and it is both accurate and complete.?? * ??Immunizations:? ??Immunization record has be en reviewed and updated. * Procedure Codes:?3074F SYST BP LT 130 MM [id number] DIAST BP < 80 MM HG * Follow Up:?1 Year (Reason: F /U) * Billing Information: * Visit Code:? 66026 Office Visit, Est Pt., Level 3. * Procedure Codes:? 3074F SYST BP LT 130 MM HG. 3078F DIAST BP < 80 MM HG. Care Plan Details* * Sign off status: Completed true * Provider:?Frank Pearson MD Date:?11/01/19 24 Generated for Sara romero/Won/eTransmitting on:?01/24/2024 10:52 AM CDT History and Physical Notes * HPI (History of Present Illness) Category Sub-Category Detail Notes Pulmonary function test Pulmonary functi on testing showed 12/21/17: FEV1/FVC 73%, FEV1 66% (1.77 L), TLC 63%, RV 42%, DLCO 63% Polysomnogram Polysomnogram results showed 12/24: AHI 8.5, requiring CPAP pressure of 15 cm water Examination Category Sub-Category Detail Notes General Examination GENERAL APPEARANCE: alert an d oriented, no acute distress EYES: extraocular movement intact (EOMI) EARS: normal hearing HEART: normal rate, regular rhythm, no murmur, no edema LUNGS: lungs clear to auscu ltation, nonlabored respirations, breath sounds equal NEUROLOGIC: alert, oriented SKIN: warm, moist PSYCH: cooperative, appropr iate mood and affect
--- OUTSIDE RECORDS SUMMARY | 2024-01-24 10:53 | XMS_ITS ---
Author Name Unknown Organization [facility] Address [address] [place] [address] Care Team Providers Care Auto Transmission Mechanic Name Role Phone Polly Barr APRN Primary Care Provider Unava ilFrank Robles [phone] Encounters Encounter Location Date Provider Diagnosis [facility] [address] [place] [address] [place] [address] 07/31/2023 Frank Pearson Plan Of Treatment Next Appt Details Provider Name:Frank Pearson, 11/03/2024 01:40:00 PM, [address] [place] [address] [place], [address], Progress Notes * MAKAYLA GALLARDO GDOB:1955 (68 yo F)Acc No.[id number]:07/31/2023 Progress Notes Patient:?MAKAYLA GALLARDO Provider:?Frank Pearson MD :1955???Age:67 Y???Sex:Female D ate:07/31/2023 Address:[address] [id number] Pcp:Polly Barr APRN Subjective: * Chief Complaints: * ??? * Medical History:? Objective: * Vitals:? Assessment: Plan: * Treatment: * Billing Information: * Visit Code:? * Procedure Codes:? Care Plan Details* * Electronic signature of Nicole Pearson MD on 01/24/2024 at 10:52 AM CDT Sign off status: Pending * Provider:?Frank Pearson MD Date:?07/31/19 24 Generated for Sara romero/Won/Halina on:?01/24/2024 10:52 AM CDT
--- OUTSIDE RECORDS SUMMARY | 2024-01-24 10:53 | XMS_ITS ---
Author Name Unknown Organization [facility] Address [address] [facility] [address] [place] [address] Care Team Providers Care Pharmacy Helper Name Role Phone Polly Barr APRN Primary Care Provider UnaFrank Michaels Unavailable [phone] Allergies Allergen (clinical drug ingredient) Drug/Non Drug [...] Duration) Notes Start Date End Date Status Vitamin D3 25 MCG (1000 UT) 2 capsule Orally Once a day Not-Taking Phentermine HCl 37.5 MG TAKE ONE TABLET BY MOUTH ONCE DAILY Oral for 30 Not-Taking Cosentyx 150 MG/ML 1 ml Subcutaneous Q 4 weeks Not-Taking Morphine Sulfate-NaCl (PF) internal pain pump Not-Taking ProAir HFA 108 (90 Base) MCG/ACT 2 puff(s) as needed Inhalation Unverified Not-Taking traZODone HCl 150 MG 2 tablet at bedtime Orally Once a day for 30 day(s) Not-Taking predniSONE 5 MG 1 tablet Orally PRN Once a day Unverified Not-Taking Furosemide 40 MG 1 tablet Orally Once a day Not-Taking Linzess 145 MCG 1 capsule at least 30 minutes before the first meal of the day on an empty stomach Orally Once a day Not-Taking OLANZapine 10 MG 1 tablet Orally Once a day Active Diclofenac Sodium 3 % 1 application Externally Twice a day Not-Taking Gabapentin 600 MG 1 tablet Orally TID Unverified Active Bystolic 10 MG 1 tablet Orally bid Unverified Not-Taking Leflunomide 20 MG 1 tablet Orally Once a day Not-Taking Dilaudid IN PAIN PUMP Not-Aneesh ing Rinvoq Active Eszopiclone 2 MG 1 tablet immediately before bedtime Orally Once a day Active Nebivolol HCl 20 MG 1 tablet Orally Once a day Active Social History Tobacco Use: Social History Observation Description Date Details (start date - stop date) Never Smoker NA - NA xTobacco Use/Smoking Question Answer Notes Are you a nonsmoker Problems Problem Type SNOMED Code ICD Code Onset Dates Problem Status W/U Status Risk Notes Problem Body mass index 40+ - morbidly obese (735208926) BMI 40.0-44.9, adult (Z68.41) Active confirmed Vital Signs Temperature 98.1 degrees Fahrenheit 04/23/20 23 Blood pressure systolic 131 mm Hg 04/23/20 23 Blood pressure diastolic 77 mm Hg 023 Heart Rate 102 /min 04/23/2023 Respiratory Rate 18 /min 04/23/2023 Height 64.57 in 04/23/2023 Weight 274.91 lbs 04/23/2023 BMI 46.35 kg/m2 04/23/2023 Oximetry 89 % 04/23/2023 Height-cm 164 cm 04/23/2023 Weight-kg 124.7 kg 04/23/2023 Encounters Encounter Location Date Provider Diagnosis [facility] [address] [place] [address] [address] [place] [address] 04/23/2023 Frank Pearson Pulmonary hypertensi on due to lung diseases [...] a saturation above 89% given pulmonary hypertension 04/23/2023 Chronic hypercapnic respiratory failure (ICD-10 - J96.12) - continue use of trilogy when asleep at night. 04/23/2023 Obstructive sleep apnea (adult) (pediatric) (ICD-10 - G47.33) - obesity hypoventilation syndrome - encourage exercise 04/23/2023 Obesity hypoventilation syndrome (ICD-10 - E66.2) 04/23/2023 Dependence on supplemental oxygen (ICD-10 - Z99.81) 04/23/2023 Dependence on other enabling machines and devices (ICD-10 - Z99.89) 04/23/2023 BMI 45.0-49.9, adult (ICD-10 - Z68.42) Plan Of Treatment Treatment Notes Assessment Notes Pulmonary hypertension due t o lung diseases and hypoxia - Secondary to left heart disease as well as hypoxemia and sleep apnea. -Currently on lasix -Encourage exercise Chronic hypoxemic respiratory failure - Patient's spo2 dropped to 84% when ambulating on room air here in clinic. She required 2 lpm to keep her spo2 at 90%. Continue oxygen use to maintain a saturation above 89% given pulmonary hypertension Chronic hypercapnic respiratory failure - continue use of trilogy when asleep at night. 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 The patient is a 67-year-old female with sleep apnea who comes in for a follow-up visit. She did have significant desaturation on exertion here in the clinic. She still gets breathless with exertion and is even more prominent when she lays down at night. She continues using the trilogy device at night. ???Polysomnogram:?Polysomnogram results showed?12/24/17: AHI 8.5, requiring CPAP pressure of 15 cm water.?Pulmonary function test:?Pulmonary function testing showed?12/21/17: FEV1/FVC 73%, FEV1 66% (1.77 L), TLC 63%, RV 42%, DLCO 63%.? * ROS:?General - Multi System:?Constitutional?fatigue.?Respiratory?shortness of breath.? * Medical History:? * Surgical History:?appendecto my port a cath placement total hytserectomy oophorectomy cholecystectomy pain pump placement back surgery * Hospitalization/Major Diagno stic Procedure:?see surgical Hx * Family History:?Father: unkn own, heart attack, diabetes.?Mother: diabetes, heart disease.? * Social History:?Tobacco Use:?Tobacco Use/Smoking?Are you a?nonsmoker ???never smoker. * Medications:?TakingEszopiclo ne 2 MG Tablet 1 tablet immediately before bedtime Orally Once a dayNebivolol HCl 20 MG Tablet 1 tablet Orally Once a dayRinvoq Gabapentin 600 MG Tablet 1 tablet Orally TID, Notes: UnverifiedOLANZapine 10 MG Tablet 1 tablet Orally Once a dayTaking Eszopiclone 2 MG Tablet 1 tablet immediately before bedtime Orally Once a dayTaking Nebivolol HCl 20 MG Tablet 1 tablet Orally Once a dayTaking Rinvoq Taking Gabapentin 600 MG Tablet 1 tablet Orally TID, Notes: UnverifiedTaking OLANZapine 10 MG Tablet 1 tablet Orally Once a dayNot-TakingDiclofenac Sodium 3 % Gel 1 application Externally Twice a dayLeflunomide 20 MG Tablet 1 tablet Orally Once a dayDilaudid , Notes: IN PAIN PUMPBystolic 10 MG Tablet 1 tablet Orally bid, Notes: UnverifiedFurosemide 40 MG Tablet 1 tablet Orally Once a dayLinzess 145 MCG Capsule 1 capsule at least 30 minutes before the first meal of the day on an empty stomach Orally Once a daytraZODone HCl 150 MG Tablet 2 tablet at bedtime Orally Once a daypredniSONE 5 MG Tablet 1 tablet Orally PRN Once a day, Notes: UnverifiedVitamin D3 25 MCG (1000 UT) Capsule 2 capsule Orally Once a dayPhentermine HCl 37.5 MG Tablet TAKE ONE TABLET BY MOUTH ONCE DAILY Oral Morphine Sulfate-NaCl (PF) , Notes: internal pain pumpProAir HFA 108 (90 Base) MCG/ACT Aerosol Solution 2 puff(s) as needed Inhalation , Notes: UnverifiedCosentyx 150 MG/ML Solution Prefilled Syringe 1 ml Subcutaneous Q 4 weeksMedication List reviewed and reconciled with the patientNot-Taking Diclofenac Sodium 3 % Gel 1 application Externally Twice a dayNot-Taking Leflunomide 20 MG Tablet 1 tablet Orally Once a dayNot-Taking Dilaudid , Notes: IN PAIN PUMPNot-Taking Bystolic 10 MG Tablet 1 tablet Orally bid, Notes: UnverifiedNot-Taking Furosemide 40 MG Tablet 1 tablet Orally Once a dayNot- Taking Linzess 145 MCG Capsule 1 capsule at least 30 minutes before the first meal of the day on an empty stomach Orally Once a dayNot-Taking traZODone HCl 150 MG Tablet 2 tablet at bedtime Orally Once a dayNot-Taking predniSONE 5 MG Tablet 1 tablet Orally PRN Once a day, Notes: UnverifiedNot-Taking Vitamin D3 25 MCG (1000 UT) Capsule 2 capsule Orally Once a dayNot-Taking Phentermine HCl 37.5 MG Tablet TAKE ONE TABLET BY MOUTH ONCE DAILY Oral Not-Taking Morphine Sulfate-NaCl (PF) , Notes: internal pain pumpNot-Taking ProAir HFA 108 (90 Base) MCG/ACT Aerosol Solution 2 puff(s) as needed Inhalation , Notes: UnverifiedNot-Taking Cosentyx 150 MG/ML Solution Prefilled Syringe 1 ml Subcutaneous Q 4 weeksMedication List reviewed and reconciled with the patient * Allergies:?penicillins: Dragan rgysulfa drugs: AllergyPenicillin G PotassiumSulfurno[Allergies Verified] Objective: * Vitals:?Ht: 64.57 in, Wt:274 .91 lbs, Wt-k.7 kg, BMI:46.35 Index, Temp:98.1 F, BP:131/77 mm Hg, HR:102 /min, RR:18 /min, Oxygen sat %:89 %, Ht-cm: 164 cm. * Examination: ???General Examination: ?GENERAL APPEARANCE:?alert and oriented, no acute distress.?EYES:?extraocular movement intact (EOMI).?EARS:?normal hearing.?SKIN:?warm, moist.?HEART:?normal rate, regular rhythm, no murmur, no edema.?LUNGS:?lungs clear to auscultation, nonlabored respirations, breath sounds equal ?.?NEUROLOGIC:?alert, oriented.?PSYCH:?cooperative, appropriate mood and affect.? Assessment: * Assessment: 1.?Pulmonary hypertension du e to lung diseases and hypoxia - I27.23 (Primary)?2.?Chronic hypoxemic respiratory failure - J96.11?3.?Chronic hypercapnic respiratory failure - J96.12?4.?Obstructive sleep apnea (adult) (pediatric) - G47.33?5.?Obesity hypoventilation syndrome - E66.2?6.?Dependence on supplemental oxygen - Z99.81?7.?Dependence on other enabling machines and devices - Z99.89?8.?BMI 45.0-49.9, adult - Z68.42 Plan: * Treatment: 2.?Chronic hypoxemic respira tory failure? Notes: - Patient's spo2 dropped to 84% when ambulating on room air here in clinic. She required 2 lpm to keep her spo2 at 90%. Continue oxygen use to maintain a saturation above 89% given pulmonary hypertension ?? 3.?Chronic hypercapnic respi ratory failure? Notes: - continue use of trilogy when asleep at night. ?? 4.?Obstructive sleep apnea ( adult) (pediatric)? Notes: - obesity hypoventilation syndrome - encourage exercise?? * ??Immunizations:? ??Immunization record has be en reviewed and updated. * Procedure Codes:? * Billing Information: * Visit Code:? 03328 Office Visit, Est Pt., Level 4. * Procedure Codes:? Care Plan Details* * BOARD MECHANIC Sign off status: Completed true * Provider:?Frank Pearson MD Date:?04/23/20 Generated for Shivi nick/Won/eTransmitting on:?01/24/2024 10:52 AM CDT History and Physical [...]
--- OUTSIDE RECORDS SUMMARY | 2024-01-24 10:53 | XMS_ITS | Patient Health Record ---
Author Name Unknown Organization [facility] Address [address] [facility] [address] [place] [address] Care Team Providers Care Organ Fixer Name Role Phone Polly Barr APRN Primary Care Provider Frank Posada Unavailable [phone] Allergies Allergen (clinical drug ingredient) Drug/Non Drug [...] Date Status Comme nts COVID (MOD) 12+yr 2022-24 Unknown 03/30/2023 Administer ed COVID-19 Vaccine (Moderna) [...] Unknown 04/14/2021 A dministered Influenza (whole), CPT 37834 Inactive Unknown 04/21/2014 Administered Influenza (whole), CPT 18592 Inactive Unknown 04/17/2017 Administered Influenza (whole), CPT 00651 Inactive Unknown 04/18/2018 Administered Influenza, seasonal, injecta [...] Problem Status W/U Status Risk Notes Problem 08038293 Obstructive slee p apnea (adult) (pediatric) (G47.33) Active confirmed Problem 33306613 Other sleep disorders (G47.8) Active confirmed Problem 39919830 Chronic rhinitis (J31.0) Active confirmed Problem Dependence on supplemental oxygen (767198066925) Dependence on supplemental oxygen (Z99.81) Active confirmed Problem 533657399 Dependence on other enabling machines and devices (Z99.89) Active confirmed Problem Pulmonary hypertension due to left heart disease (105243744) 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) Active confirmed Problem Pulmonary hypertension due to lung disease and/or hypoxia (635663900) Pulmonary hypertension due to lung diseases and hypoxia (I27.23) Active confirmed Problem 813228444 Other secondary pulmonary hypertension (I27.29) Active confirmed Problem Continuous positive airway pressure ventilation treatment (51834197) CPAP (continuous positive airway pressure) dependence (Z99.89) Active confirmed Problem Body mass index 40+ - severely obese (055263436) BMI 45.0-49.9, adult (Z68.42) Active confirmed Problem Body mass index 40+ - morbidly obese (390185794) BMI 40.0-44.9, adult (Z68.41) Active confirmed Problem 49422292 Pulmonary hypertension (I27.20) Active confirmed Problem Chronic hypoxemic respiratory failure (058164803) Chronic hypoxemic respiratory failure (J96.11) Active confirmed Problem Chronic hypercapnic respiratory failure (874708628) Chronic hypercapnic respiratory failure (J96.12) Active confirmed Problem Extreme obesity with alveolar hypoventilation (807067906) Obesity hypoventilation syndrome (E66.2) Active confirmed Problem Shortness of breath (173342993) Shortness of breath (R06.02) Active confirmed [facility]-103 6773- Vital Signs Heart Rate 96 /min 11/01/2023 Temperature 98 degrees Fahrenheit 11/01/2023 Respiratory Rate 18 /min 11/01/2023 Blood pressure diastolic 77 mm Hg 11/01/2023 Oximetry 93 % 11/01/2023 Height-cm 164 cm 11/01/2023 Weight-kg 122.3 kg 11/01/2023 Height 64.57 in 11/01/2023 Blood pressure systolic 127 mm Hg 11/01/2023 Weight 269.62 lbs 11/01/2023 BMI 45.46 kg/m2 11/01/2023 Encounters Encounter Location Date Provider Diagnosis [facility] [address] [place] [address] 04/23/2023 Frank Pearson [facility] [address] [place] [address] [place] [address] 04/23/2023 Frank Pearson Pulmonary hypertensi on due to lung diseases and hypoxia I27.23 ; Chronic hypoxemic respiratory failure J96.11 ; Chronic hypercapnic respiratory failure J96.12 ; Obstructive sleep apnea (adult) (pediatric) G47.33 ; Obesity hypoventilation syndrome E66.2 ; Dependence on supplemental oxygen Z99.81 ; Dependence on other enabling machines and devices Z99.89 and BMI 45.0-49.9, adult Z68.42 [facility] [address] [address] 11/01/2023 Frank Pearson Chronic hypoxemic respiratory failure [...] Test Test Name Order Date Blood Gas Arterial--[id number] 12/26/2020 Next Appt Details Provider Name:Frank Pearson, 11/03/2024 01:40:00 PM, [address] [place] [address] [address], [place], [address], Insurance Providers Payer Name Payer Address Payer Phone Subscriber Number Group Number Insured Name Patient Relationship to Insured Coverage Start Date Coverage End Date [place] [address] OR[place] SZ[place]SKI [phone] [id number] SHAMIKAMAKAYLA LAGUERRE Self - patient is the insured [facility] Medicare Supplement [address] [place] [address] [phone] [id number] SHAMIKAMAKAYLA Self - patient is the insured [...]
[2024-01-24 11:27] LABS: Basophils # 0.1 10^3/uL (0.0-0.1); Basophils % 0.5 %; Eosinophils # 0.2 10^3/uL (0.0-0.8); Eosinophils % 1.8 %; Hematocrit 38.3 % (36-47); Lymphocytes # 2.3 10^3/uL (0.8-4.8); Lymphocytes % 21.6 %; Mean Corpuscular HGB Conc 31.9 g/dL (30-55); Mean Corpuscular Hemoglobin 29.5 pg (27-33); Mean Corpuscular Volume 92.5 fl (85-98); Mean Platelet Volume 10.1 fL (7.4-10.4); Monocytes # 0.9 10^3/uL (0.2-0.9); Monocytes % 7.9 %; Neutrophils # 7.29 10^3/uL (1.8-7.7); Neutrophils % 67.1 %; Nucleated Red Blood Cells % 0 %; Platelet Count 332 10^3/cmm (157-399); Red Blood Count 4.14 10^6/uL (3.85-5.65); Red Cell Distribution Width 12.3 % (12.1-15.1); White Blood Count 10.85 10^3/uL (3.29-11.43)
[2024-01-24] MEDS: sodium chloride 0.9% 250 ML 75 ML IV (11:43)
[2024-01-24] MEDS: acetaminophen 325 mg Tablet 650 MG PO (11:43)
[2024-01-24] MEDS: diphenhydrAMINE 50 mg/mL SDV 1mL 25 MG IVP (11:44)
[2024-01-24] MEDS: methylPREDNISolone sod succ 40 mg/mL INJ IVP (11:44)
[2024-01-24 12:02] LABS: Erythrocyte Sedimentation Rate 74 mm/hr (0-15)
[2024-01-24] MEDS: infliximab-abda 600 MG in sodium chloride 0.9% 250 ML 10 MG IV (12:48)
[2024-01-24 13:30] LABS: Alanine Aminotransferase 14 U/L (0-33); Albumin Level 3.4 g/dL (3.5-5.2); Alkaline Phosphatase 81 U/L (35-105); Creatinine Clr Calc Pharmacy 93.4602; Globulin 4.6 g/dL (1.3-4.6); Glomerular Filtration Rate 83.7 mL/min (90-130); Total Bilirubin 0.2 mg/dL (0.15-1.2)
[2024-01-24 13:35] LABS: Aspartate Amino Transferase 20 U/L (0-32)
[2024-02-08] VITALS (8 sets, daily range): BP systolic 116–151; BP diastolic 64–83; PULSE 65–77; RESP 16–18; TEMP 36–36.9; O2SAT 91–99
--- OUTSIDE RECORDS SUMMARY | 2024-02-08 07:45 | XMS_ITS ---
Author Name Unknown Organization [facility] Address [address] [place] [address] Care Team Providers Care Pocket Cutter Name Role Phone Barr Polly LANGE Primary Care Provider Frank Posada Unavailable [phone] Allergies Allergen (clinical drug ingredient) Drug/Non Drug [...] Problem Status W/U Status Risk Notes Problem 69110397 Pulmonary hypertension (I27.20) Active confirmed Problem 27222452 Chronic rhinitis (J31.0) Active confirmed Vital Signs [...] 11/01/2023 Encounters Encounter Location Date Provider Diagnosis [facility] [address] [place] [address] [place] [address] 11/01/2023 Frank Pearson Chronic hypoxemic respiratory failure [...] /U Provider Name:Frank Pearson, 11/03/2024 01:40:00 PM, [address] [place] [address] [place], [address], Progress Notes * MAKAYLA GALLARDO GDOB:1955 (67 yo F)Acc No.[id number]:11/01/2023 Progress Notes Patient:?MAKAYLA GALLARDO Provider:?Frank Pearson MD :1955???Age:67 Y???Sex:Female D ate:11/01/2023 Address:[address] [place], [place] [address] Pcp:Polly Barr APRN Check In:01:21 PM CSTCheck Satya ut:01:59 PM NOVELTY MAKER Subjective: * Chief Complaints: * ???Shortness of [...] Procedure Codes:?3074F SYST BP LT 130 MM [id number] DIAST BP < 80 MM HG * Follow Up:?1 Year (Reason: F /U) * Billing Information: * Visit Code:? 00868 Office Visit, Est Pt., Level 3. * Procedure Codes:? 3074F SYST BP LT 130 MM HG. 3078F DIAST BP < 80 MM HG. Care Plan Details* * Sign off status: Completed true * Provider:?Frank Pearson MD Date:?11/01/19 24 Generated for Sara romero/Won/eTransmitting on:?02/08/2024 07:45 AM CDT History and Physical Notes * [...]
--- OUTSIDE RECORDS SUMMARY | 2024-02-08 07:45 | XMS_ITS ---
Author Name Unknown Organization [facility] Address [address] [facility] [place] [address] Care Team Providers Care Manager Category Name Role Phone Polly Barr APRN Primary Care Provider Unava Frank Hernandez [phone] Encounters Encounter Location Date Provider Diagnosis [facility] [address] [place] [address] [place] [address] 07/31/2023 Frank Pearson Plan Of Treatment Next Appt Details Provider Name:Frank Pearson, 11/03/2024 01:40:00 PM, [address] [place] [address] [place], [address], Progress Notes * MAKAYLA GALLARDO GDOB:1955 (68 yo F)Acc No.[id number]:07/31/2023 Progress Notes Patient:?MAKAYLA GALLARDO Provider:?Frank Pearson MD :1955???Age:67 Y???Sex:Female D ate:07/31/2023 Address:[facility] [place] Pcp:Polly Barr APRN Subjective: * Chief Complaints: * ??? * Medical History:? Objective: * Vitals:? Assessment: Plan: * Treatment: * Billing Information: * Visit Code:? * Procedure Codes:? Care Plan Details* * Electronic signature of Nicole Pearson MD on 02/08/2024 at 07:45 AM CDT Sign off status: Pending * Provider:?Frank Pearson MD Date:?07/31/19 24 Generated for Sara romero/Won/Halina on:?02/08/2024 07:45 AM CDT
--- OUTSIDE RECORDS SUMMARY | 2024-02-08 07:45 | XMS_ITS ---
Author Name Unknown Organization [facility] Address [address] [facility] [place] [address] Care Team Providers Care Striper Spray Gun Name Role Phone Barr Polly LANGE Primary Care Provider Frank Posada Unavailable [phone] Allergies Allergen (clinical drug ingredient) Drug/Non Drug [...] Body mass index 40+ - morbidly obese (273754950) BMI 40.0-44.9, adult (Z68.41) Active confirmed Vital [...] 04/23/2023 Encounters Encounter Location Date Provider Diagnosis [facility] [address] [place] [address] [place] [address] 04/23/2023 Frank Pearson Pulmonary hypertensi on due [...] Details Provider Name:Frank Pearson, 11/03/2024 01:40:00 PM, [address] [place] [address] [address], [place], [address], Progress Notes * Nicole GALLARDO GDOB:1955 (67 yo F)Acc No.[id number]:04/23/2023 Progress Notes Patient:?Nicole Gallardo Provider:?Frank Pearson MD :1955???Age:67 Y???Sex:Female D ate:04/23/2023 Address:[address], [place] Pcp:Polly Barr APRN Check In:02:36 PM CSTCheck O ut:03:16 PM AGRONOMY SUPERVISOR Subjective: * Chief Complaints: * ???Shortness of [...] and reconciled with the patient * Allergies:?penicillins: Dargan rgysulfa drugs: AllergyPenicillin G PotassiumSulfurno[Allergies Verified] Objective: [...] Codes:? * Billing Information: * Visit Code:? 11960 Office Visit, Est Pt., Level 4. * Procedure Codes:? Care Plan Details* * NOMY SUPERVISOR Sign off status: Completed true * Provider:?Frank Pearson MD Date:?04/23/20 Generated for Printi ng/Won/eTransmitting on:?02/08/2024 07:45 AM CDT History and Physical [...]
--- OUTSIDE RECORDS SUMMARY | 2024-02-08 07:46 | XMS_ITS | Patient Health Record ---
Author Name Unknown Organization [facility] Address [address] [place] [address] Care Team Providers Care Industrial Pipefitter Journeyman Name Role Phone Barr Polly LANGE Primary Care Provider Frank Posada Unavailable [phone] Allergies Allergen (clinical drug ingredient) Drug/Non Drug [...] Unknown 04/14/2021 A dministered Influenza (whole), CPT 77350 Inactive Unknown 04/21/2014 Administered Influenza (whole), CPT 96748 Inactive Unknown 04/17/2017 Administered Influenza (whole), CPT 18901 Inactive Unknown 04/18/2018 Administered Influenza, seasonal, injecta [...] Problem Status W/U Status Risk Notes Problem 57040830 Obstructive slee p apnea (adult) (pediatric) (G47.33) Active confirmed Problem 16248953 Other sleep disorders (G47.8) Active confirmed Problem 22024276 Chronic rhinitis (J31.0) Active confirmed Problem Dependence on supplemental oxygen (346300444840) Dependence on supplemental oxygen (Z99.81) Active confirmed Problem 347761581 Dependence on other enabling machines and devices (Z99.89) Active confirmed Problem Pulmonary hypertension due to left heart disease (919726704) 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) Active confirmed Problem Pulmonary hypertension due to lung disease and/or hypoxia (926684965) Pulmonary hypertension due to lung diseases and hypoxia (I27.23) Active confirmed Problem 840075603 Other secondary pulmonary hypertension (I27.29) Active confirmed Problem Continuous positive airway pressure ventilation treatment (27591156) CPAP (continuous positive airway pressure) dependence (Z99.89) Active confirmed Problem Body mass index 40+ - severely obese (823149025) BMI 45.0-49.9, adult (Z68.42) Active confirmed Problem Body mass index 40+ - morbidly obese (126481578) BMI 40.0-44.9, adult (Z68.41) Active confirmed Problem 97776722 Pulmonary hypertension (I27.20) Active confirmed Problem Chronic hypoxemic respiratory failure (033073296) Chronic hypoxemic respiratory failure (J96.11) Active confirmed Problem Chronic hypercapnic respiratory failure (648541000) Chronic hypercapnic respiratory failure (J96.12) Active confirmed Problem Extreme obesity with alveolar hypoventilation (498212839) Obesity hypoventilation syndrome (E66.2) Active confirmed Problem Shortness of breath (281519850) Shortness of breath (R06.02) Active confirmed [facility] 6773- Vital Signs Heart Rate 96 /min 11/01/2023 Temperature 98 degrees Fahrenheit 11/01/2023 Respiratory Rate 18 /min 11/01/2023 Oximetry 93 % 11/01/2023 Height-cm 164 cm 11/01/2023 Blood pressure diastolic 77 mm Hg 11/01/2023 Weight-kg 122.3 kg 11/01/2023 Height 64.57 in 11/01/2023 Blood pressure systolic 127 mm Hg 11/01/2023 Weight 269.62 lbs 11/01/2023 BMI 45.46 kg/m2 11/01/2023 Encounters Encounter Location Date Provider Diagnosis [facility] [address] [place] [address] 04/23/2023 Frank Pearson [facility] [address] [place] [address] [place] [address] 04/23/2023 Frank Pearson Pulmonary hypertensi on due to lung diseases and hypoxia I27.23 ; Chronic hypoxemic respiratory failure J96.11 ; Chronic hypercapnic respiratory failure J96.12 ; Obstructive sleep apnea (adult) (pediatric) G47.33 ; Obesity hypoventilation syndrome E66.2 ; Dependence on supplemental oxygen Z99.81 ; Dependence on other enabling machines and devices Z99.89 and BMI 45.0-49.9, adult Z68.42 [facility] [address] [place] [address] [place] [address] 11/01/2023 Frank Pearson Chronic hypoxemic respiratory failure [...] Test Test Name Order Date Blood Gas Arterial--[id number] 12/26/2020 Next Appt Details Provider Name:Frank Pearson, 11/03/2024 01:40:00 PM, [address] [place] [address] [address], [place], [address], Insurance Providers Payer Name Payer Address Payer Phone Subscriber Number Group Number Insured Name Patient Relationship to Insured Coverage Start Date Coverage End Date [place] Medicare [address] [place] SZ[place]MANSKI [phone] [id number] SHAMIKAMAKAYLA LAGUERRE Self - patient is the insured [facility] Medicare Supplement [address] [place] [address] [phone] [id number] SHAMIKAMAKAYLA Self - patient is the insured [...]
[2024-02-08] MEDS: sodium chloride 0.9% 250 ML 75 ML IV (08:33)
[2024-02-08] MEDS: acetaminophen 325 mg Tablet 650 MG PO (08:33)
[2024-02-08] MEDS: diphenhydrAMINE 50 mg/mL SDV 1mL 25 MG IVP (08:34)
[2024-02-08] MEDS: methylPREDNISolone sod succ 40 mg/mL INJ IVP (08:35)
--- NOTE | 2024-02-08 09:22 | PC.NURSE ---
Treatment 02/08/24 Patient scheduled for Infliximab infusion today. Patient stated she had stomach bug last week during [facility] Infusion checklist. Patient stated she had nausea, vomiting, and diarrhea but denied fever and chills. Patient stated she has not been on antibiotics and is now asymptomatic. This nurse attempted to contact Dr. Stewart regarding this, with no success. After discussion with upholstery department supervisor and patient reporting no antibiotics or fevers, will proceed with treatment today.
[2024-02-08] MEDS: infliximab-abda 600 MG in sodium chloride 0.9% 250 ML 10 MG IV (09:45)
== END 2024-02-08 23:59 | disposition home or self-care (01) ==
PROVIDERS: PCP Nurse Practitioner Family; Visit Provider Internal Medicine Rheumatology
DX: L40.50 Arthropathic psoriasis, unspecified (principal); Z79.899 Other long term (current) drug therapy; Z53.9 Procedure and treatment not carried out, unspecified reason
CPT/HCPCS: 80076; 82565; 85025; 85651; 96365; 96366; 96375; 96413; 96415; A4222; J1200; J2919; J7050; Q5104

== ENCOUNTER → 2024-03-24 14:10 | Outpatient (BNVA) | payer MEDICARE, SELFPAY | PROVIDERS: PCP Nurse Practitioner Family; Visit Provider Internal Medicine Rheumatology | DX: L40.50 Arthropathic psoriasis, unspecified (principal); R76.8 Other specified abnormal immunological findings in serum; M85.80 Other specified disorders of bone density and structure, unspecified site; M81.0 Age-related osteoporosis without current pathological fracture; Z79.899 Other long term (current) drug therapy; Z71.85 Encounter for immunization safety counseling | CPT/HCPCS: 99214 ==

== ENCOUNTER → 2024-07-28 13:04 | Outpatient (BNVA) | payer MEDICARE, SELFPAY | PROVIDERS: PCP Nurse Practitioner Family; Visit Provider Internal Medicine Rheumatology | DX: L40.50 Arthropathic psoriasis, unspecified (principal); Z79.899 Other long term (current) drug therapy; R76.8 Other specified abnormal immunological findings in serum; Z71.89 Other specified counseling | CPT/HCPCS: 36415; 80076; 82565; 85025; 85651; 86140; 99214 ==

== ENCOUNTER → 2024-11-17 12:47 | Outpatient (BNVA) | payer MEDICARE, SELFPAY | PROVIDERS: PCP Nurse Practitioner Family; Visit Provider Internal Medicine Rheumatology | DX: L40.50 Arthropathic psoriasis, unspecified (principal); R76.8 Other specified abnormal immunological findings in serum; Z79.899 Other long term (current) drug therapy; Z71.89 Other specified counseling | CPT/HCPCS: 36415; 80076; 82565; 85025; 85651; 86140; 99214 ==

== ENCOUNTER → 2025-05-18 13:22 | Outpatient (BNVA) | payer MEDICARE, SELFPAY | PROVIDERS: PCP Nurse Practitioner Family; Visit Provider Internal Medicine Rheumatology | DX: L40.50 Arthropathic psoriasis, unspecified (principal); R76.89 Other specified abnormal immunological findings in serum; Z79.899 Other long term (current) drug therapy; Z71.85 Encounter for immunization safety counseling; M85.88 Other specified disorders of bone density and structure, other site | CPT/HCPCS: 36415; 80076; 82565; 85025; 85651; 86140; 99214 ==